=== PATIENT | male | born 1940 | race Caucasian/White ===

== ENCOUNTER 2020-02-05 14:09 | Emergency (ER) | payer MEDICARE, SELFPAY ==
[2020-02-05] VITALS (8 sets, daily range): BP systolic 92–144; BP diastolic 49–88; PULSE 54–109; RESP 12–22; TEMP 36.6; O2SAT 96–100
--- NOTE | ~2020-02-05 | XR_ITS ---
XR chest 1V portable DATE: 02/05/2020 15:05 INDICATION: Seizure. Evaluate for aspiration. TECHNIQUE: Portable AP chest on 02/05/2020 at 1500 hours COMPARISON: 10/14/2017 PA and lateral chest FINDINGS: Mild patchy bibasilar infiltrates and/atelectasis are noted. Bibasilar aspiration pneumonit is would be a consideration. The lungs otherwise appear clear. There is elevation of the left hilum a nd left apical capping consistent with chronic left upper lobe scarring and volume loss, also present on 10/14/2017. No hilar or mediastinal enlargement is evident. Normal heart size. No pulmonary vascular congestion. Minimal pleural effusions are not excluded. IMPRESSION: New bibasilar mild infiltrate or atelectasis; aspiration pneumonitis is a consideration. Chronic left upper lobe scarring and volume loss Reviewed, dictated and finalized at location A. IMPRESSION: New bibasilar mild infiltrate or atelectasis; aspiration pneumoniti s is a consideration. Chronic left upper lobe scarring and volume loss
--- NOTE | 2020-02-05 14:20 | ED.NEUROSD ---
HPI - Neuro Symptoms/Deficit General Chief Complaint: Seizure Stated Complaint: SZ Source: EMS Mode of arrival: EMS Limitations: altered mental status and clinical condition History of Present Illness HPI Narrative: Patient is an 79-year-old male with a history of stage IV glioblastoma currently on outpatient trial through [facility], active chemotherapy and radiation who presents for evaluation of seizure activity. Patient had a witnessed seizure at home, for which EMS was called. The time of EMS arrival, patient actively seizing was given 5 intramuscular Valium. Patient had oxygen saturation of 90% on scene, glucose was 146. Patient was put on nonrebreather and transported to our facility. Patient had gaze deviation, was somnolent, respirations quite labored at the time of my assessment. Patient then had another seizure which we had to give IV Ativan for. Medical power of auto air conditioning apprentice at bedside stating that patient is DO NOT RESUSCITATE, DO NOT INTUBATE. Additional history unable to be obtained due to patient's clinical condition and acuity of condition. Related Data Allergies Allergy/AdvReac Type Severity Reaction Status Date / Time iodine Allergy Mild Verified 06/09/19 12:14 Iodine and Iodide Containing Allergy Unknown Verified 06/09/19 12:14 Produc Review of Systems Review of Systems: ROS unobtainable: Yes unobtainable due to medical condition and unobtainable due to mental status PMFSH Past Medical History Medical History GERD (gastroesophageal reflux disease) Glioblastoma Hyperlipidemia Polio Surgical History Surgical History History of appendectomy History of tracheostomy Social History Social History Smoking status: Never smoker Alcohol intake: current Gender identity (if verbalized by the patient): Male Exam Narrative: Exam Narrative: GENERAL: Somnolent, not arousable HEAD: Normocephalic, atraumatic. EYES:Gaze deviation fixed to the right, no nystagmus ENT: Nares clear, no rhinorrhea or epistaxis. Mucous membranes moist. NECK: Supple. CHEST: Labored respirations, sonorous, hypoxemia, patient is in respiratory distress HEART: Tachyardic rate, sinus rhythm ABDOMEN:Non distended, non tender EXTREMITIES: No spontaneous movement. No edema. SKIN: Warm, dry, no rash. NEURO: Somnolent, not arousable, does not respond to painful stimuli, no posturing, no tonic-clonic activity Course Vital Signs Vital signs: Vital Signs Temperature 36.6 C 02/05/20 14:23 Pulse Rate 109 H 02/05/20 14:23 Respiratory Rate 12 02/05/20 14:23 Blood Pressure 144/88 H 02/05/20 14:23 Pulse Oximetry 99 02/05/20 14:23 Temperature 36.6 C 02/05/20 14:23 Pulse Rate 87 02/05/20 16:48 Respiratory Rate 22 H 02/05/20 16:48 Blood Pressure 124/67 02/05/20 16:48 Pulse Oximetry 96 02/05/20 16:48 MDM - Neuro Symptoms/Deficit MDM Narrative Medical decision making narrative: Patient is an 79-year-old male who presented for seizure activity. Patient had been given intramuscular Valium is very somnolent with agonal respirations. He is hypoxemic and on a nonrebreather. The patient's medical power of auto air conditioning apprentice (son) and sibling are at bedside, after discussion with them, they state the patient would not want resuscitation or intubation. I did explain the physiology of the sedation medications to help abort the seizures and that this could and would lead to respiratory depression which could also cause the patient to . They voiced understanding. They are asking for machining department supervisor to be present. We discussed BiPAP and ultimately they decided they did not want the patient on BiPAP. Laboratory results are consistent with status epilepticus with recurrent seizure activity noted on exam despite multiple doses of IV Ativan, Valium, loading the nicho
--- NOTE | 2020-02-05 14:29 | ECG_ITS ---
Measurements Intervals [place] Rate: 0 P: [place]: 0 QRS: QRSD: 0 T: QT: 0 QTc: 0 Interpretive Statements SINUS RHYTHM BASELINE WANDER- I, II, AVR, AVL, AVF, V2 NORMAL ECG Electronically Signed On 02-06-2020 7:46:35 CDT by Antoni Richardson D.O.
[2020-02-05 14:47] LABS: Alveolar/Arterial O2 Gradient 403.6 mmHg; Base Excess ABG -4.4 mEq/l (+/-2.0); Carboxyhemoglobin 0.5 % THb (0-2.0); Fractional Inspired Oxygen 100 %; HCO3 ABG 25.4 mEq/l (22.0-26.0); Methemoglobin ABG 0.6 %THb (0-1.5); Oxygen Content ABG 21.9 %vol (16.0-22.0); Oxygen Saturation ABG 99.3 % (95.0-100.0); PO2 ABG 241.3 mmHg (80.0-100.0); PO2 FiO2 Ratio Arterial Blood 2.41 %; Reduced Hemoglobin 0.9 %THb (0-5.0); Total Hemoglobin 15.5 g/dL (12.0-18.0)
[2020-02-05 14:50] LABS: Device NON-REBREATHER MASK; Modified Allen's Test Pass; PCO2 ABG 68.1 mmHg (35.0-45.0); Site Drawn LEFT RADIAL
[2020-02-05 14:54] LABS: Basophils Percent Auto 0.2 % (0.2-1.2); Eosinophils Absolute Auto 0.1 K/mm3 (0-0.3); Eosinophils Percent Auto 1.6 % (0-4.4); Hematocrit 48.2 % (42.0-52.0); Hemoglobin 15.2 g/dL (14.0-18.0); Immature Granulocyte Absolute 0.03 K/mm3 (0.00-0.031); Immature Granulocyte Percent A 0.6 % (0-0.5); Lymphocytes Absolute Auto 1.22 K/mm3 (0.9-3.2); Lymphocytes Percent Auto 23.9 % (18.3-44.2); Mean Corpuscular HGB Conc 31.5 g/dl (32-36); Mean Corpuscular Hemoglobin 31.1 pg (26-34); Mean Corpuscular Volume 98.8 fl (80-100); Mean Platelet Volume 9.5 fl (7.4-10.4); Monocytes Absolute Auto 0.5 K/mm3 (0.1-0.6); Neutrophils Absolute Auto 3.3 K/mm3 (1.3-6.7); Neutrophils Percent Auto 64.7 % (45.5-73.1); Platelet Count Result 198 k/mm3 (150-375); Red Blood Count 4.88 M/mm3 (4.6-6.20); Red Cell Distribution Width 13.3 % (11.5-14.5); White Blood Count 5.1 K/mm3 (4.5-10.0)
[2020-02-05] MEDS: SODIUM CHLORIDE 0.9% IV 1,000 ML 999 ML IV CONT (14:54)
[2020-02-05] MEDS: ONDANSETRON INJ 4 MG/2 ML VIAL IV PUSH (14:54)
[2020-02-05] MEDS: levETIRAcetam 1000MG/NACL100ML 1,000 MG/100 ML BAG 400 MG IVPB (14:57)
--- NOTE | 2020-02-05 15:00 | PCCCNOTE ---
02/05/2020 at 1500; To ED to see pt and son; pt not able to participate d/t seizures and medications to control seizures, Pt has hx of brain tumor on experimental cancer trial. Son states that their wishes are for hospice. ED MD indicates prognosis is grim. Son and family choose [facility] for hospice care provider. Hospice notified and info given.
[2020-02-05 15:04] LABS: Glucose Point of Care 85 (65-105)
[2020-02-05 15:05] LABS: Anion Gap 11 mmol/L (8-16); Blood Urea Nitrogen 14 mg/dL (9-20); Calcium 8.5 mg/dL (8.4-10.2); Carbon Dioxide 27 mmol/L (22-30); Chloride 101 mmol/L (98-107); Estimated Glomerular Filt Rate > 60; Glucose 86 mg/dL (75-110); Potassium 3.5 mmol/L (3.4-5.0); Sodium 139 mmol/L (137-145)
[2020-02-05 15:06] LABS: Lactic Acid Reflex 6.4 mmol/L (0.7-2.1)
[2020-02-05] MEDS: methylPREDNISolone SOD SUCC 125 MG VIAL IV PUSH (15:30)
--- NOTE | 2020-02-05 15:49 | PC.NURSE ---
pt taken off bipap per family request. pt now on nonrebreather at 10 lpm. pt remains sedated. vitals stable. family present
[2020-02-05] MEDS: AMPICILLIN SULB 1.5 GM/NS 50ML 1.5 GM/50 ML VIAL IVPB (16:23)
--- NOTE | 2020-02-05 16:48 | PM.IMHP ---
H&P: HPI History of Present Illness Date/Time: 02/05/20 16:48 Chief complaint: Status epilepticus/Hypercarbic respiratory failure Narrative: Livan Zuñiga is a 79 year old male with glioblastoma brought in for seizures. Patient was being treated for his cancer through [facility] with chemo and XRT. On EMS arrival, patient was actively seizing and was given Valium 5mg IM. Patient brought to the ED. In the ED, pt had another seizure and was given IV Ativan. Treated a third time for recurrent seizure and was loaded on Keppra. Family at bedside. ER physician provider discussed in detail about prognosis and family has bdecided to keep the patient comfortable at this time. Hospice was called and patient to be admitted under hospice care. Review of Systems Review of Systems: ROS unobtainable: Yes unobtainable due to medical condition PMFSH Past Medical History Medical History GERD (gastroesophageal reflux disease) Glioblastoma Hyperlipidemia Polio Surgical History Surgical History History of appendectomy History of tracheostomy Family History Family History Father Family history of malignant neoplasm, Onset Age: 75 Social History Social History Smoking status: Former smoker Tobacco type: cigars Alcohol intake: current Substance use: never Substance use type: does not use Gender identity (if verbalized by the patient): Male Spiritual care concerns: Yes (Yarsanism) Meds Home Medications and Allergies Home Medications Medication Instructions Recorded Confirmed Type No Home Medications 02/07/20 02/07/20 History Allergies Allergy/AdvReac Type Severity Reaction Status Date / Time iodine Allergy Mild Unknown Verified 02/05/20 17:29 Iodine and Iodide Containing Allergy Unknown Unknown Verified 02/05/20 17:29 Produc Vital Signs Vital Signs - 24 hr 02/05/20 14:23 02/05/20 14:55 02/05/20 15:00 Temperature 97.8 F Pulse Rate 109 H 95 Respiratory Rate 12 19 Blood Pressure 144/88 H Pulse Oximetry 99 99 96 02/05/20 15:04 02/05/20 15:23 02/05/20 16:23 Temperature Pulse Rate 77 90 Respiratory Rate 20 22 H Blood Pressure 119/66 Pulse Oximetry 98 Exam Narrative: Exam Narrative: AF 124/67 87 55 98% NRB Gen - elderly male lying semi-recumbent in bed with snoring respirations. HEENT - pupils sluggish Neck - supple Chest - coarse BS anteriorly CV - RRR S1/S2 Abd - soft, nondistended Ext - no pedal edema, RLE smaller then left Neuro - unresponsive. RUE flaccid. Moves left arm H&P: Results Labs Labs: Short CBC 02/05/20 Range/Units 14:44 WBC 5.1 (4.5-10.0) K/mm3 Hgb 15.2 (14.0-18.0) g/dL Hct 48.2 (42.0-52.0) % Plt Count 198 (150-375) k/mm3 BMP 02/05/20 14:44 Sodium 139 Potassium 3.5 Chloride 101 Carbon Dioxide 27 BUN 14 Creatinine 0.80 Glucose 86 Calcium 8.5 Assessment and Plan Assessment and plan (1) Acute respiratory failure: Qualifiers: Respiratory failure complication: hypoxia and hypercapnia Qualified Code(s): J96.01 - Acute respiratory failure with hypoxia; J96.02 - Acute respiratory failure with hypercapnia Code(s): J96.00 - Acute respiratory failure, unspecified whether with hypoxia or hypercapnia Status: Acute (2) Status epilepticus: Code(s): G40.901 - Epilepsy, unspecified, not intractable, with status epilepticus Status: Acute (3) Aspiration pneumonia: Qualifiers: Aspiration pneumonia type: due to gastric secretions Laterality: right Lung location: lower lobe of lung Qualified Code(s): J69.0 - Pneumonitis due to inhalation of food and vomit Code(s): J69.0 - Pneumonitis due to inhalation
--- NOTE | 2020-02-05 17:30 | ADMGEN ---
This patient, Livan Zuñiga, was admitted to Medical Room 340-01. Patient/family oriented to hospital policies and general routines including ID bracelet, bed and alarms, visiting hours, pain management, procedures, bathroom and other care routines, personal items, smoking policy, room service/diet, and visiting hours. Valuables list has been completed. Information on how to activate the Rapid Response Team has been discussed. Patient/Family are encouraged to report perceived risks to care and to ask questions if they do not understand what they are told or what they should do.
[2020-02-05 17:48] LABS: Reflex Lactic Acid Yes or No Add Lactic
[2020-02-05] MEDS: SCOPOLAMINE 1.5 MG PATCH TRANSDERM (18:15)
[2020-02-05] MEDS: levETIRAcetam 500MG/NACL 100ML 500 MG/100 ML BAG 400 MG IVPB (20:58)
[2020-02-06] MEDS: levETIRAcetam 500MG/NACL 100ML 500 MG/100 ML BAG 400 MG IVPB ×2 (08:45→20:05)
--- NOTE | 2020-02-06 15:42 | PM.IMPN ---
Progress Note: A&P Assessment and Plan (1) Acute respiratory failure: Qualifiers: Respiratory failure complication: hypoxia and hypercapnia Qualified Code(s): J96.01 - Acute respiratory failure with hypoxia; J96.02 - Acute respiratory failure with hypercapnia Code(s): J96.00 - Acute respiratory failure, unspecified whether with hypoxia or hypercapnia Status: Acute (2) Status epilepticus: Code(s): G40.901 - Epilepsy, unspecified, not intractable, with status epilepticus Status: Acute (3) Aspiration pneumonia: Qualifiers: Aspiration pneumonia type: due to gastric secretions Laterality: right Lung location: lower lobe of lung Qualified Code(s): J69.0 - Pneumonitis due to inhalation of food and vomit Code(s): J69.0 - Pneumonitis due to inhalation of food and vomit Status: Acute (4) Glioblastoma: Code(s): C71.9 - Malignant neoplasm of brain, unspecified Status: Acute (5) Polio: Code(s): A80.9 - Acute poliomyelitis, unspecified Status: Acute Additional Plan 02/05/20: Patient seen and examined in the ED. Family at bedside. Start morphine drip. Have Ativan available as needed for seizures and for anxiety. Place Torres. Patient is DNR. Continue Keppra. Discussed plan of care with family and they were all in agreement. 02/06/20: No issues. Patient comfortable. Continue current care plan. Change to nasall cannula for comfort from NRB mask. Subjective Date/time seen: 02/06/20 15:42 Interval history: 79yo male with glioblastoma here for comfort measures and hospice care. No issues overnight. He has remianed comfortable per RN and per family in the room. Patient is unresponsive. Exam Narrative: Exam Narrative: Gen - NARD, unresponsive Chest - coarse BS anteriorly CV - S1/S2 Abd - soft, nondistended Ext - no pedal edema Neuro - unresponsive Objective Data Vital Signs Vital Signs: Vital Signs - 24 hr 02/05/20 16:23 02/05/20 16:48 02/05/20 17:33 Temperature 97.8 F Pulse Rate 90 87 54 L Respiratory Rate 22 H 22 H 18 Blood Pressure 119/66 124/67 92/49 L Pulse Oximetry 98 96 100 Intake/Output Intake/Output: Intake & Output 02/03/20 02/04/20 02/05/20 02/06/20 23:59 23:59 23:59 23:59 Intake Total 1370 100 Balance 1370 100 Meds/Results Medications: Active Medications Generic Name Dose Route Start Last Admin Trade Name Freq PRN Reason Stop Dose Admin Acetaminophen 650 mg 02/05/20 17:27 Tylenol Suppository RECTAL Q6H PRN Mild Pain (1-3) or Fever Morphine Sulfate 50 mg/ Sodium 100 mls @ 4 mls/hr 02/05/20 17:30 02/05/20 18:18 Chloride IV CONT 2 mg/hr .Q24H DIONISIO 4 mls/hr Administration 2 MG/HR Levetiracetam 500 mg in 100 mls @ 400 mls/hr 02/05/20 21:00 02/06/20 09:00 Keppra Iv IVPB Infused Q12HR DIONISIO Infusion Lorazepam 2 mg 02/05/20 17:27 Ativan Inj IV PUSH Q1H PRN Anxiety or seizure Morphine Sulfate 2 mg 02/05/20 17:27 Morphine Sulfate Inj IV PUSH Q2H PRN Pain Rated 7-10 Scopolamine 1.5 mg 02/05/20 17:58 02/05/20 18:15 Transderm-Scop TRANSDERM 1.5 mg Q72HR DIONISIO Administration Radiology Results: ITS Impressions Chest X-Ray 02/05/20 15:05 IMPRESSION: New bibasilar mild infiltrate or atelectasis; aspiration pneumonitis is a consideration. Chronic left upper lobe scarring and volume loss
[2020-02-06 21:14] VITALS: BP 102/48; PULSE 99; RESP 22; TEMP 37.7; O2SAT 75
--- NOTE | 2020-02-07 08:25 | PC.NURSE ---
Home medications documented as no home medications ; patient is on hospice and not receiving any home medications identified on external medication records.
[2020-02-07] MEDS: levETIRAcetam 500MG/NACL 100ML 500 MG/100 ML BAG 400 MG IVPB (08:33)
[2020-02-07 09:59] VITALS: TEMP 38.1
[2020-02-07] MEDS: ACETAMINOPHEN 650 MG SUPPOSITORY RECTAL (09:59)
[2020-02-07 10:08] VITALS: BP 107/62; PULSE 118; RESP 24; TEMP 38.1; O2SAT 58
[2020-02-07 10:46] VITALS: TEMP 37.9
--- NOTE | 2020-02-07 19:22 | PM.DDS ---
Discharge Sum: Prov Provider Primary care physician: Nura Sharif MD Admitting provider: Aries Pratt MD Attending physician on admission: Celestino Pratt Consults: 02/05/20 17:30 Consult to Spiritual Care Services Routine Comment: Discharge Sum: Diag Contributing Factors (1) Acute respiratory failure: (2) Status epilepticus: (3) Aspiration pneumonia: (4) Glioblastoma: (5) Polio: Discharge Sum: Summary Date and Time Date of admission: 02/05/20 16:06 Date of : 02/07/20 Summary Details: 79 year old male with glioblastoma brought in for seizures. On EMS arrival, patient was actively seizing and was given Valium 5mg IM. Patient brought to the ED. In the ED, pt had another seizure and was given IV Ativan. Treated a third time for recurrent seizure and was loaded on Keppra. Family at bedside. ER physician provider discussed in detail about prognosis and family has decided to keep the patient comfortable at this time. Hospice was called and patient was admitted under hospice care. He was kept comfortable and on 02/07/20 with family at bedside. 25 minutes spent with patient and family Additional Data Family: at bedside Attending physician: Aries Pratt MD Hospice patient?: Yes
== END 2020-02-05 17:06 | disposition hospice, inpatient (51) ==
LOC: ANHED 16:11 → ANH3MED 19:28
PROVIDERS: Emergency Provider Emergency Medicine; PCP Emergency Medicine; Visit Provider Internal Medicine
DX: G40.901 Epilepsy, unspecified, not intractable, with status epilepticus (principal); C71.9 Malignant neoplasm of brain, unspecified; K21.9 Gastro-esophageal reflux disease without esophagitis; E78.5 Hyperlipidemia, unspecified; Z86.12 Personal history of poliomyelitis; R91.8 Other nonspecific abnormal finding of lung field; Z66 Do not resuscitate
CPT/HCPCS: 36415; 36600; 71045; 80048; 82375; 82805; 82948; 83050; 83605; 85025; 93005; 94002; 96365; 96367; 96375; 99291; A9270; J0295; J1165; J1953; J2060; J2270; J2405; J2930; J7030

== ENCOUNTER 2020-02-05 18:45 | HOS | payer OTHER, SELFPAY ==
--- NOTE | 2020-02-05 16:52 | HP_ITS ---
H&P: HPI History of Present Illness Date/Time: 02/05/20 16:48 Chief complaint: Status epilepticus/Hypercarbic respiratory failure Narrative: Livan Zuñiga is a 79 year old male with glioblastoma brought in for seizures. Patient was being treated for his cancer through [facility] with chemo and XRT. On EMS arrival, patient was actively seizing and was given Valium 5mg IM. Patient brought to the ED. In the ED, pt had another seizure and was given IV Ativan. Treated a third time for recurrent seizure and was loaded on Keppra. Family at bedside. ER physician provider discussed in detail about prognosis and family has bdecided to keep the patient comfortable at this time. Hospice was called and patient to be admitted under hospice care. Review of Systems Review of Systems: ROS unobtainable: Yes unobtainable due to medical condition PMFSH Past Medical History Medical History GERD (gastroesophageal reflux disease) Glioblastoma Hyperlipidemia Polio Surgical History Surgical History History of appendectomy History of tracheostomy Family History Family History Father Family history of malignant neoplasm, Onset Age: 75 Social History Social History Smoking status: Former smoker Tobacco type: cigars Alcohol intake: current Substance use: never Substance use type: does not use Gender identity (if verbalized by the patient): Male Spiritual care concerns: Yes (Confucianist) Meds Home Medications and Allergies Home Medications Medication Instructions Recorded Confirmed Type No Home Medications 02/07/20 02/07/20 History Allergies Allergy/AdvReac Type Severity Reaction Status Date / Time iodine Allergy Mild Unknown Verified 02/05/20 17:29 Iodine and Iodide Containing Allergy Unknown Unknown Verified 02/05/20 17:29 Produc Vital Signs Vital Signs - 24 hr 02/05/20 14:23 02/05/20 14:55 02/05/20 15:00 Temperature 97.8 F Pulse Rate 109 H 95 Respiratory Rate 12 19 Blood Pressure 144/88 H Pulse Oximetry 99 99 96 02/05/20 15:04 02/05/20 15:23 02/05/20 16:23 Temperature Pulse Rate 77 90 Respiratory Rate 20 22 H Blood Pressure 119/66 Pulse Oximetry 98 Exam Narrative: Exam Narrative: AF 124/67 87 55 98% NRB Gen - elderly male lying semi-recumbent in bed with snoring respirations. HEENT - pupils sluggish Neck - supple Chest - coarse BS anteriorly CV - RRR S1/S2 Abd - soft, nondistended Ext - no pedal edema, RLE smaller then left Neuro - unresponsive. RUE flaccid. Moves left arm H&P: Results Labs Labs: Short CBC 02/05/20 Range/Units 14:44 WBC 5.1 (4.5-10.0) K/mm3 Hgb 15.2 (14.0-18.0) g/dL Hct 48.2 (42.0-52.0) % Plt Count 198 (150-375) k/mm3 BMP 02/05/20 14:44 Sodium 139 Potassium 3.5 Chloride 101 Carbon Dioxide 27 BUN 14 Creatinine 0.80 Glucose 86 Calcium 8.5 This report was moved to the correct visit, [id number], on February 22, 2020. Original report was signed by Dr. Aries Pratt on February 05, 2020 at 1926.
--- NOTE | 2020-02-05 17:30 | DS_ITS ---
This report was moved to the correct visit, [id number] on 02/10/2020. Original report was signed by Aries Pratt MD on 02/07/20 at 1926. Discharge Sum: Prov Provider Primary care physician: Nura Sharif MD Admitting provider: Aries Pratt MD Attending physician on admission: Celestino Pratt Consults: 02/05/20 17:30 Consult to Spiritual Care Services Routine Comment: Discharge Sum: Diag Contributing Factors (1) Acute respiratory failure: (2) Status epilepticus: (3) Aspiration pneumonia: (4) Glioblastoma: (5) Polio: Discharge Sum: Summary Date and Time Date of admission: 02/05/20 16:06 Date of : 02/07/20 Summary Details: 79 year old male with glioblastoma brought in for seizures. On EMS arrival, patient was actively seizing and was given Valium 5mg IM. Patient brought to the ED. In the ED, pt had another seizure and was given IV Ativan. Treated a third time for recurrent seizure and was loaded on Keppra. Family at bedside. ER physician provider discussed in detail about prognosis and family has decided to keep the patient comfortable at this time. Hospice was called and patient was admitted under hospice care. He was kept comfortable and on 02/07/20 with family at bedside. 25 minutes spent with patient and family Additional Data Family: at bedside Attending physician: Aries Pratt MD Hospice patient?: Yes Report Initialized date/time: Aries Pratt MD 02/07/20 / 1925 Electronically signed by: Aries Pratt MD 02/07/201925 [facility]
--- NOTE | 2020-02-06 15:46 | PN_ITS ---
This report was moved to the correct visit, [id number], on February 22, 2020. Original report was signed by Dr. Aries Pratt on February 06, 2020 at 1546. Progress Note: A&P Assessment and Plan (1) Acute respiratory failure: Qualifiers: Respiratory failure complication: hypoxia and hypercapnia Qualified Code(s): J96.01 - Acute respiratory failure with hypoxia; J96.02 - Acute respiratory failure with hypercapnia Code(s): J96.00 - Acute respiratory failure, unspecified whether with hypoxia or hypercapnia Status: Acute (2) Status epilepticus: Code(s): G40.901 - Epilepsy, unspecified, not intractable, with status epilepticus Status: Acute (3) Aspiration pneumonia: Qualifiers: Aspiration pneumonia type: due to gastric secretions Laterality: right Lung location: lower lobe of lung Qualified Code(s): J69.0 - Pneumonitis due to inhalation of food and vomit Code(s): J69.0 - Pneumonitis due to inhalation of food and vomit Status: Acute (4) Glioblastoma: Code(s): C71.9 - Malignant neoplasm of brain, unspecified Status: Acute (5) Polio: Code(s): A80.9 - Acute poliomyelitis, unspecified Status: Acute Additional Plan 02/05/20: Patient seen and examined in the ED. Family at bedside. Start morphine drip. Have Ativan available as needed for seizures and for anxiety. Place Torres. Patient is DNR. Continue Keppra. Discussed plan of care with family and they were all in agreement. 02/06/20: No issues. Patient comfortable. Continue current care plan. Change to nasall cannula for comfort from NRB mask. Subjective Date/time seen: 02/06/20 15:42 Interval history: 79yo male with glioblastoma here for comfort measures and hospice care. No issues overnight. He has remianed comfortable per RN and per family in the room. Patient is unresponsive. Exam Narrative: Exam Narrative: Gen - NARD, unresponsive Chest - coarse BS anteriorly CV - S1/S2 Abd - soft, nondistended Ext - no pedal edema Neuro - unresponsive Objective Data Vital Signs Vital Signs: Vital Signs - 24 hr 02/05/20 16:23 02/05/20 16:48 02/05/20 17:33 Temperature 97.8 F Pulse Rate 90 87 54 L Respiratory Rate 22 H 22 H 18 Blood Pressure 119/66 124/67 92/49 L Pulse Oximetry 98 96 100 Intake/Output Intake/Output: Intake & Output 02/03/20 02/04/20 02/05/20 02/06/20 23:59 23:59 23:59 23:59 Intake Total 1370 100 Balance 1370 100 Meds/Results Medications: Active Medications Generic Name Dose Route Start Last Admin Trade Name Freq PRN Reason Stop Dose Admin Acetaminophen 650 mg 02/05/20 17:27 Tylenol Suppository RECTAL Q6H PRN Mild Pain (1-3) or Fever Morphine Sulfate 50 mg/ Sodium 100 mls @ 4 mls/hr 02/05/20 17:30 02/05/20 18:18 Chloride IV CONT 2 mg/hr .Q24H DIONISIO 4 mls/hr Administration 2 MG/HR Levetiracetam 500 mg in 100 mls @ 400 mls/hr 02/05/20 21:00 02/06/20 09:00 Keppra Iv IVPB Infused Q12HR DIONISIO Infusion Lorazepam 2 mg 02/05/20 17:27 Ativan Inj IV PUSH Q1H PRN Anxiety or seizure Morphine Sulfate 2 mg 02/05/20 17:27 Morphine Sulfate Inj IV PUSH Q2H PRN Pain Rated 7-10 Scopolamine 1.5 mg 02/05/20 17:58 02/05/20 18:15 Transderm-Scop TRANSDERM 1.5 mg Q72HR DIONISIO Administration Radiology Results: ITS Impressions Chest X-Ray 02/05/20 15:05 IMPRESSION: New bibasilar mild i
== END 2020-02-07 16:56 | disposition expired | DRG 951 ==
LOC: ANH3MEDSUR 02-14 14:07
PROVIDERS: Admitting Provider Internal Medicine; PCP Emergency Medicine; Visit Provider Internal Medicine
DX: Z51.5 Encounter for palliative care (principal); J96.02 Acute respiratory failure with hypercapnia; J96.01 Acute respiratory failure with hypoxia; J69.0 Pneumonitis due to inhalation of food and vomit; G40.801 Other epilepsy, not intractable, with status epilepticus; C71.9 Malignant neoplasm of brain, unspecified; E78.5 Hyperlipidemia, unspecified; Z86.12 Personal history of poliomyelitis; K21.9 Gastro-esophageal reflux disease without esophagitis; Z87.891 Personal history of nicotine dependence; Z66 Do not resuscitate
CPT/HCPCS: A9270; J1953; J2060; J2270